=== PATIENT | female | born 1955 | race Caucasian/White ===

== ENCOUNTER 2019-02-08 09:57 | Emergency (ER) | payer MEDICARE, MEDICAID ==
[~2019-02-08] VITALS: Ht 154.9 cm; Wt 96.6 kg
[~2019-02-08 09:57] MED LIST: ASPI81TA18 PO; INSU100S22 SUBQ; LOSA25TA32 PO; METF1000 PO
[2019-02-08 10:11] VITALS: BP 165/65
--- NOTE | 2019-02-08 10:11 | NUR ---
Note undone in EDM - 02/08/19 at 1035 by [facility] PT ARRIVED TO ED C/O BAD PAIN/ VAIGNAL ITCHINESS X 4 DAYS. RATES PAIN 12/26 AND DESCRIBES IT PRESSURE AND ITCHING. NO VAGINAL DISCHAGRE NOTED. DENIES DYSURIA. PT STATES THE PAIN RADIATES TO HER ANUS. VSS. DENIES ANY TRUAMA OR INJURY. PATIENT POSITIONED FOR COMFORT; HOB ELEVATED; BEDRAILS UP X2; BED DOWN. ER MD MADE AWARE OF PT STATUS NKA. PMH: HTN, DM, ARTHIRIST.
--- NOTE | 2019-02-08 10:11 | NUR ---
PT ARRIVED TO ED C/O ABD PAIN/ VAGINAL ITCHINESS X 4 DAYS. RATES PAIN 9/10 AND DESCRIBES IT PRESSURE AND ITCHING. NO VAGINAL DISCHARGE NOTED. DENIES DYSURIA. PT STATES THE PAIN RADIATES TO HER ANUS. VSS. DENIES ANY TRUAMA OR INJURY. PATIENT POSITIONED FOR COMFORT; HOB ELEVATED; BEDRAILS UP X2; BED DOWN. ER MD MADE AWARE OF PT STATUS NKA. PMH: HTN, DM, ARTHIRIST.
[2019-02-08 12:20] VITALS: BP 165/65
--- NOTE | 2019-02-08 12:20 | NUR ---
Patient discharged with v/s stable. Written and verbal after care instructions given and explained. Patient alert, oriented and verbalized understanding of instructions. Ambulatory with steady gait. All questions addressed prior to discharge. ID band removed. Patient advised to follow up with PMD. Rx of OMENTROPAZOLE, MACROBID. given. Patient educated on indication of medication including possible reaction and side effects. Opportunity to ask questions provided and answered.
== END 2019-02-08 12:20 | disposition home or self-care (01) ==
LOC: MED 09:57
DX: N39.0 Urinary tract infection, site not specified (principal); B37.3 Candidiasis of vulva and vagina; E11.9 Type 2 diabetes mellitus without complications; M19.90 Unspecified osteoarthritis, unspecified site; I10 Essential (primary) hypertension; Z90.49 Acquired absence of other specified parts of digestive tract; Z90.710 Acquired absence of both cervix and uterus; Z98.890 Other specified postprocedural states; Z79.4 Long term (current) use of insulin; Z79.82 Long term (current) use of aspirin; Z79.899 Other long term (current) drug therapy
CPT/HCPCS: 81002; 99283

== ENCOUNTER 2019-02-17 05:23 | Emergency (ER) | payer MEDICARE, MEDICAID ==
[~2019-02-17] VITALS: Ht 154.9 cm; Wt 98.0 kg
[2019-02-17 05:30] VITALS: BP 182/90
--- NOTE | 2019-02-17 05:30 | NUR ---
63/F PRESENTED TO ED WITH C/O UTI. COMPLAINS OF PAINFUL URINATION. STATES SHE WAS SEEN HERE FOR UTI [id number] AGO AND PRESCRIBED MACROBID BUT UTI HAS NOT GONE AWAY. PAIN 10/10 SHARP SUPRAPUBIC RADIATING TO LOWER BACK. STATES SHE HAS FREQUENT UTI'S. VSS. PMH- DM, HTN, ARTHRITIS DENIES ALLERGIES.
--- NOTE | 2019-02-17 06:48 | NUR ---
BLOOD DRAWS COLLECTED
[2019-02-17 06:50] LABS: BILIRUBIN,URINE NEGATIVE (NEGATIVE); BLOOD, URINE NEGATIVE (NEGATIVE); COLOR,URINE YELLOW (YELLOW); LEUKOCYTE ESTERASE ,URINE NEGATIVE (NEGATIVE); NITRITE, URINE NEGATIVE (NEGATIVE); PH,URINE 7.5 (5.0-9.0); UGLUCOSE 3+ (NEGATIVE)
[2019-02-17 06:57] LABS: APPEARANCE,URINE SL HAZY (CLEAR)
[2019-02-17 06:59] LABS: RBC,URINE 0 /HPF (0-5); WBC,URINE 0-5 /HPF (0-5)
--- NOTE | 2019-02-17 07:20 | NUR ---
BEDSIDE REPORT GIVEN TO GINGER DONALDSON
[2019-02-17] MEDS ORDERED: NACL 0.9% 1,000 ML IV ONE (07:21)
--- NOTE | 2019-02-17 07:21 | NUR ---
RECEIVED PATIENT, AAOX4, C/O ABDOMINAL PAIN 01/25, VSS, NO S/S OF DISTRESS.
[2019-02-17 07:23] LABS: ANION GAP 12.6 (8-16); CARBON DIOXIDE 28.7 mmol/L (21-32); CREATININE 0.7 mg/dL (0.6-1.3); POTASSIUM 4.3 mmol/L (3.5-5.1)
[2019-02-17 07:24] LABS: BASOPHILS % (AUTO) 0.7 % (0.0-2.0); EOSINOPHILS # (AUTO) 0.2 K/uL (0-0.4); EOSINOPHILS % (AUTO) 3.4 % (0.0-4.0); HEMATOCRIT 35.1 % (36-48); HEMOGLOBIN 11.2 g/dL (12.0-16.0); LYMPHOCYTES # (AUTO) 1.5 K/uL (2.5-16.5); LYMPHOCYTES % (AUTO) 24.6 % (20.5-51.1); MEAN CORPUSCULAR HEMOGLOBIN 28 pg (27-31); MEAN CORPUSCULAR HGB CONC 32 g/dL (33-37); MEAN CORPUSCULAR VOLUME 88.9 fL (80-94); MONOCYTES # (AUTO) 0.5 K/uL (0.8-1.0); NEUTROPHILS # (AUTO) 3.8 K/uL (1.8-7.7); NEUTROPHILS % (AUTO) 63.3 % (42.2-75.2); PLATELET COUNT (AUTO) 236 K/uL (140-450); RED BLOOD CELL COUNT(AUTO) 3.95 MIL/uL (4.20-5.40); RED CELL DISTRIBUTION WIDTH 13.9 % (11.6-13.7)
[2019-02-17] MEDS ORDERED: KETOROLAC 30 MG/ML VIAL IVP ONE (07:25)
[2019-02-17] MEDS ORDERED: ONDANSETRON 4 MG/2 ML VIAL IVP ONE (07:25)
[2019-02-17] MEDS ORDERED: MORPHINE SULFATE 2 MG/ML SYR IVP ONE (07:25)
[2019-02-17 07:29] LABS: ALBUMIN 2.8 g/dL (3.4-5.0); TOTAL BILIRUBIN 0.2 mg/dL (0.0-1.0)
--- NOTE | 2019-02-17 07:35 | NUR ---
PT IS TAKEN TO CT
--- NOTE | 2019-02-17 07:58 | NUR ---
PT IS BACK FROM CT, IV MEDICATION GIVEN, VSS, STILL LOWER ABDOMINAL PAIN 01/25.
[2019-02-17 10:04] LABS: AMYLASE 51 U/L (25-115); LIPASE 200 U/L (73-393)
--- NOTE | 2019-02-17 10:39 | NUR ---
Patient discharged with v/s stable. Written and verbal after care instructions given and explained. Patient alert, oriented and verbalized understanding of instructions. Ambulatory with steady gait. All questions addressed prior to discharge. ID band removed. Patient advised to follow up with PMD. Rx of JAMES SHELDON given. Patient educated on indication of medication including possible reaction and side effects. Opportunity to ask questions provided and answered.
--- NOTE | 2019-02-17 10:39 | NUR ---
IV removed X 2, catheters intact and site benign. Applied folded 4x4 gauze and tape to stop bleeding bilaterally.
[2019-02-17 10:40] VITALS: BP 154/71
--- NOTE | 2019-02-19 13:48 | NUR ---
Late entry. Confirmed with RN that 0.9 NS 100ml/hr was completed at 1039.
== END 2019-02-17 10:39 | disposition home or self-care (01) ==
LOC: MED 05:23
DX: N39.0 Urinary tract infection, site not specified (principal); E66.9 Obesity, unspecified; E11.9 Type 2 diabetes mellitus without complications; I10 Essential (primary) hypertension; N76.0 Acute vaginitis; M19.90 Unspecified osteoarthritis, unspecified site; Z98.890 Other specified postprocedural states; Z79.4 Long term (current) use of insulin; Z79.82 Long term (current) use of aspirin; Z79.899 Other long term (current) drug therapy
CPT/HCPCS: 36415; 74176; 80053; 81001; 82150; 83690; 85025; 96374; 96375; 99284; J1885; J2270; J2405; J7030

== ENCOUNTER 2019-07-30 10:17 | Emergency (ER) | payer MEDICARE, MEDICAID ==
[~2019-07-30] VITALS: Ht 152.4 cm; Wt 122.5 kg
[2019-07-30 10:24] VITALS: BP 207/85
--- NOTE | 2019-07-30 10:30 | NUR ---
PT C/O UTI S/S X 1 WEEK. +DYSURIA, FREQUENCY, URGENCY. PT ALSO REPORTS LOWER BACK PAIN AND SUPRAPUBIC PAIN 5/10. +NAUSEA. PT DENIES VOMITING, AB PAIN, OR FEVER. PT PASHTO SPEAKING, DR MARC NOTES REVIEWED. PMH- ASTHMA, DM
--- NOTE | 2019-07-30 10:32 | NUR ---
pt amb to restroom with steady gait
--- NOTE | 2019-07-30 10:42 | NUR ---
urine collected, colored don, hazy
[2019-07-30 10:56] LABS: APPEARANCE,URINE HAZY (CLEAR); BILIRUBIN,URINE NEGATIVE (NEGATIVE); BLOOD, URINE NEGATIVE (NEGATIVE); COLOR,URINE ORANGE (YELLOW); LEUKOCYTE ESTERASE ,URINE TRACE (NEGATIVE); NITRITE, URINE POSITIVE (NEGATIVE); UGLUCOSE TRACE (NEGATIVE)
[2019-07-30 11:00] VITALS: BP 195/76
--- NOTE | 2019-07-30 11:00 | NUR ---
Patient discharged with v/s stable. Written and verbal after care instructions given and explained IN [place]ROMAN[place]. PT VERBALIZED UNDERSTANDING. Patient alert, oriented and verbalized understanding of instructions. Ambulatory with steady gait. All questions addressed prior to discharge. ID band removed. Patient advised to follow up with PMD. Rx of MACROBID given. Patient educated on indication of medication including possible reaction and side effects. Opportunity to ask questions provided and answered.
[2019-07-30 11:57] LABS: RBC,URINE 0-5 /HPF (0-5)
--- NOTE | 2019-08-01 20:43 | NUR ---
LATE ENTRY-- RECEIVED A POSTIVE URINE CULTURE. DR ROBLES AWARE AND REQUESTED PT TO RETURN IF SYMPTOMS WORSENING FOR IV ABX. ATTEMPT MADE TO CALL PATIENT, NUMBER PROVIDED IS NO LONGER IN SERVICE. NO OTHER NUMBERS PROVIDED. DR MITCHELL AWARE.
== END 2019-07-30 11:00 | disposition home or self-care (01) ==
LOC: MED 10:17
DX: N39.0 Urinary tract infection, site not specified (principal); E11.9 Type 2 diabetes mellitus without complications; I10 Essential (primary) hypertension; Z90.49 Acquired absence of other specified parts of digestive tract; Z98.890 Other specified postprocedural states; Z79.4 Long term (current) use of insulin; Z79.899 Other long term (current) drug therapy
CPT/HCPCS: 81001; 87086; 87186; 99283

== ENCOUNTER 2019-11-09 09:16 | Emergency (ER) | payer MEDICARE, MEDICAID ==
[~2019-11-09] VITALS: Ht 152.4 cm; Wt 99.0 kg
[2019-11-09 09:21] VITALS: BP 173/69
--- NOTE | 2019-11-09 09:27 | NUR ---
PT AMBULATED TO BED 5.
--- NOTE | 2019-11-09 09:30 | NUR ---
PT C/O NIC FLANK PAIN RADIATING TO LOWER ABDOMEN X 3 DAYS. PT STATES DYSURIA AND BURNING SENSATION OF URINATION. DENIES URGENCY OR FREQUENCY OF URINATIONG OR HEMATURIA. REGULAR BM, LAST BM YESTERDAY NIGHT. DENIES N/V/D. NIC CVAT POSITIVE AND LEFT SIDE IS TENDER THAN RIGHT SIDE. AAOX4 WITH EVEN AND STEADY GAIT; PATIENT STATES PAIN OF 9/10 AT THIS TIME; VSS; PATIENT POSITIONED FOR COMFORT; HOB ELEVATED; BEDRAILS UP X1; BED DOWN. ER MD MADE AWARE OF PT STATUS.
[2019-11-09 09:50] LABS: BASOPHILS # (AUTO) 0.2 K/uL (0.00-0.22); BASOPHILS % (AUTO) 1.5 % (0.0-2.0); EOSINOPHILS # (AUTO) 0.3 K/uL (0-0.4); EOSINOPHILS % (AUTO) 3.1 % (0.0-4.0); HEMATOCRIT 36.6 % (36-48); HEMOGLOBIN 11.8 g/dL (12.0-16.0); LYMPHOCYTES # (AUTO) 2.2 K/uL (2.5-16.5); LYMPHOCYTES % (AUTO) 20.7 % (20.5-51.1); MEAN CORPUSCULAR HEMOGLOBIN 29 pg (27-31); MEAN CORPUSCULAR HGB CONC 32 g/dL (33-37); MEAN CORPUSCULAR VOLUME 89.5 fL (80-94); MONOCYTES # (AUTO) 0.7 K/uL (0.8-1.0); MONOCYTES % (AUTO) 6.3 % (1.7-9.3); NEUTROPHILS # (AUTO) 7.1 K/uL (1.8-7.7); NEUTROPHILS % (AUTO) 68.4 % (42.2-75.2); PLATELET COUNT (AUTO) 208 K/uL (140-450); RED BLOOD CELL COUNT(AUTO) 4.09 MIL/uL (4.20-5.40); RED CELL DISTRIBUTION WIDTH 13.7 % (11.6-13.7); WHITE BLOOD COUNT (AUTO) 10.4 K/uL (4.8-10.8)
[2019-11-09 10:16] LABS: ALBUMIN 3.4 g/dL (3.4-5.0); ANION GAP 13.1 (8-16); CARBON DIOXIDE 27.8 mmol/L (21-32); CREATININE 0.8 mg/dL (0.6-1.3); POTASSIUM 4.9 mmol/L (3.5-5.1); TOTAL BILIRUBIN 0.3 mg/dL (0.0-1.0)
--- NOTE | 2019-11-09 10:20 | NUR ---
ERMD AT BEDSIDE.
--- NOTE | 2019-11-09 10:20 | NUR ---
Dr. Rodríguez is evaluating the patient at bedside.
[2019-11-09 10:38] VITALS: BP 145/48
[2019-11-09 11:15] LABS: APPEARANCE,URINE CLEAR (CLEAR); BILIRUBIN,URINE NEGATIVE (NEGATIVE); BLOOD, URINE NEGATIVE (NEGATIVE); COLOR,URINE YELLOW (YELLOW); LEUKOCYTE ESTERASE ,URINE 3+ (NEGATIVE); NITRITE, URINE NEGATIVE (NEGATIVE); PH,URINE 7.5 (5.0-9.0); UGLUCOSE 2+ (NEGATIVE)
[2019-11-09 11:37] LABS: RBC,URINE 0-5 /HPF (0-5)
[2019-11-09 11:38] LABS: WBC,URINE 60-80 /HPF (0-5)
== END 2019-11-09 10:38 | disposition home or self-care (01) ==
LOC: MED 09:16
DX: N12 Tubulo-interstitial nephritis, not specified as acute or chronic (principal); E11.9 Type 2 diabetes mellitus without complications; I10 Essential (primary) hypertension
CPT/HCPCS: 36415; 80053; 81001; 85025; 87086; 87186; 99284

== ENCOUNTER 2019-12-17 16:24 | Emergency (ER) | payer MEDICARE, MEDICAID ==
[~2019-12-17] VITALS: Ht 152.4 cm; Wt 95.3 kg
--- NOTE | 2019-12-17 16:37 | NUR ---
PT AMB TO ER BED 3
[2019-12-17 16:43] VITALS: BP 175/80
--- NOTE | 2019-12-17 16:50 | NUR ---
C/O PAINFUL URINATION FOR 7 DAYS SOUGHT CONSULT AT [facility]RGENT [facility] 2 DAYS AGO STILL WITH PAIN 11/25 , DENIES N/V. PMHXS NTH , DM , RA. MEDS INSULIN AND ORH.
--- NOTE | 2019-12-17 17:10 | NUR ---
roxie wong at bedside evaluating pt.
[2019-12-17 17:53] VITALS: BP 175/80
--- NOTE | 2019-12-17 17:54 | NUR ---
Patient discharged with v/s stable. Written and verbal after care instructions given and explained regarding UTI . Patient alert, oriented and verbalized understanding of instructions. Ambulatory with steady gait. All questions addressed prior to discharge. ID band removed. Patient advised to follow up with PMD. Rx of naprosyn ,cipro and phenazopyridine Hcl given. Patient educated on indication of medication including possible reaction and side effects. Opportunity to ask questions provided and answered.
== END 2019-12-17 17:54 | disposition home or self-care (01) ==
LOC: MED 16:24
DX: N39.0 Urinary tract infection, site not specified (principal); E11.9 Type 2 diabetes mellitus without complications; I10 Essential (primary) hypertension; Z90.49 Acquired absence of other specified parts of digestive tract; Z90.710 Acquired absence of both cervix and uterus; Z79.82 Long term (current) use of aspirin; Z79.4 Long term (current) use of insulin; Z79.899 Other long term (current) drug therapy
CPT/HCPCS: 81002; 99283

== ENCOUNTER 2020-04-02 10:01 | Emergency (ER) | payer MEDICARE, MEDICAID ==
[~2020-04-02] VITALS: Ht 152.4 cm; Wt 101.2 kg
--- NOTE | 2020-04-02 10:30 | NUR ---
PT TAKEN TO CHAIR A.
[2020-04-02] MEDS ORDERED: KETOROLAC 30 MG/ML VIAL IM STA (10:42)
[2020-04-02] MEDS ORDERED: cefTRIAXone 1,000 MG in LIDOCAINE MPF 1% 2.1 ML IM ONE (10:45)
[2020-04-02] MEDS ORDERED: LIDOCAINE MPF 1% 5 ML ONE (11:12)
[2020-04-02] MEDS ORDERED: cefTRIAXone 1,000 MG VIAL ONE (11:12)
[2020-04-02 11:21] VITALS: BP 183/100
--- NOTE | 2020-04-02 11:21 | NUR ---
Patient discharged with v/s stable. Written and verbal after care instructions given and explained. Patient alert, oriented and verbalized understanding of instructions. Ambulatory with steady gait. All questions addressed prior to discharge. ID band removed. Patient advised to follow up with PMD. Rx of Keflex 500mg given. Patient educated on indication of medication including possible reaction and side effects. Opportunity to ask questions provided and answered.
[2020-04-02 12:25] LABS: APPEARANCE,URINE CLOUDY (CLEAR); BILIRUBIN,URINE NEGATIVE (NEGATIVE); BLOOD, URINE NEGATIVE (NEGATIVE); COLOR,URINE YELLOW (YELLOW); LEUKOCYTE ESTERASE ,URINE NEGATIVE (NEGATIVE); NITRITE, URINE POSITIVE (NEGATIVE); PH,URINE 7.5 (5.0-9.0); UGLUCOSE 1+ (NEGATIVE)
[2020-04-02 13:07] LABS: RBC,URINE 0-5 /HPF (0-5); WBC,URINE 0-5 /HPF (0-5)
== END 2020-04-02 11:21 | disposition home or self-care (01) ==
LOC: MED 10:01
DX: N39.0 Urinary tract infection, site not specified (principal); N12 Tubulo-interstitial nephritis, not specified as acute or chronic; E11.9 Type 2 diabetes mellitus without complications
CPT/HCPCS: 81001; 81025; 87086; 96372; 99284; J0696; J1885; J2001

== ENCOUNTER 2021-06-14 09:01 | Emergency (ER) | payer OTHER, MEDICAID ==
[~2021-06-14] VITALS: Ht 149.9 cm; Wt 97.5 kg
[2021-06-14 09:08] VITALS: BP 211/95
--- NOTE | 2021-06-14 09:20 | NUR ---
66/F BIB SELF WITH C/O LOWER BACK PAIN RADIATING TO HER LOWER ABDOMEN X3 DAYS. REPORTS NAUSEA AND DYSURIA, DENIES V/D, FEVERS. PT STATES 10/10 PAIN. MEDHX: DM, HTN, ARTHRITIS ALLERGIES: NKA
--- NOTE | 2021-06-14 09:24 | NUR ---
DR SAGE AT BEDSIDE EXAMINING PT
--- NOTE | 2021-06-14 09:29 | NUR ---
LAB AT BEDSIDE
[2021-06-14] MEDS ORDERED: ONDANSETRON 4 MG/2 ML VIAL IVP ONE (09:35)
[2021-06-14] MEDS ORDERED: KETOROLAC 15 MG/ML VIAL IVP ONE (09:35)
[2021-06-14] MEDS ORDERED: LOSARTAN 25 MG TAB ONE (09:40)
[2021-06-14 09:41] LABS: BASOPHILS # (AUTO) 0.1 K/uL (0.00-0.22); BASOPHILS % (AUTO) 1.5 % (0.0-2.0); EOSINOPHILS # (AUTO) 0.2 K/uL (0-0.4); EOSINOPHILS % (AUTO) 3.2 % (0.0-4.0); HEMATOCRIT 36.1 % (36-48); HEMOGLOBIN 11.8 g/dL (12.0-16.0); LYMPHOCYTES # (AUTO) 1.8 K/uL (2.5-16.5); MEAN CORPUSCULAR HEMOGLOBIN 28 pg (27-31); MEAN CORPUSCULAR HGB CONC 33 g/dL (33-37); MONOCYTES # (AUTO) 0.4 K/uL (0.8-1.0); MONOCYTES % (AUTO) 6.1 % (1.7-9.3); NEUTROPHILS # (AUTO) 4.6 K/uL (1.8-7.7); NEUTROPHILS % (AUTO) 64.2 % (42.2-75.2); PLATELET COUNT (AUTO) 270 K/uL (140-450); RED BLOOD CELL COUNT(AUTO) 4.29 MIL/uL (4.20-5.40); RED CELL DISTRIBUTION WIDTH 14.1 % (11.6-13.7); WHITE BLOOD COUNT (AUTO) 7.1 K/uL (4.8-10.8)
[2021-06-14] MEDS ORDERED: LOSARTAN 25 MG TAB PO SCH (09:45)
[2021-06-14 09:55] LABS: ALBUMIN 3.3 g/dL (3.4-5.0); ANION GAP 11.2 (8-16); CARBON DIOXIDE 29.7 mmol/L (21-32); CREATININE 0.7 mg/dL (0.6-1.3); POTASSIUM 4.9 mmol/L (3.5-5.1); TOTAL BILIRUBIN 0.4 mg/dL (0.0-1.0)
--- NOTE | 2021-06-14 11:20 | NUR ---
PT RESTING IN BED, COMFORT MEASURES MET.
[2021-06-14 11:59] LABS: BILIRUBIN,URINE NEGATIVE (NEGATIVE); BLOOD, URINE NEGATIVE (NEGATIVE); COLOR,URINE YELLOW (YELLOW); LEUKOCYTE ESTERASE ,URINE NEGATIVE (NEGATIVE); NITRITE, URINE POSITIVE (NEGATIVE); PH,URINE 7.5 (5.0-9.0); UGLUCOSE 3+ (NEGATIVE)
[2021-06-14 12:07] LABS: APPEARANCE,URINE SLIGHTLY HAZY (CLEAR)
[2021-06-14 12:08] LABS: RBC,URINE 0-5 /HPF (0-5); WBC,URINE 0-5 /HPF (0-5)
[2021-06-14] MEDS ORDERED: CIPR500T9 PO (13:33)
[2021-06-14 13:40] VITALS: BP 143/39
--- NOTE | 2021-06-14 13:40 | NUR ---
Patient discharged with v/s stable. Written and verbal after care instructions given and explained. Patient alert, oriented and verbalized understanding of instructions. Ambulatory with steady gait. All questions addressed prior to discharge. ID band removed. Patient advised to follow up with PMD. Rx of CIPROFLOXACIN given. Patient educated on indication of medication including possible reaction and side effects. Opportunity to ask questions provided and answered.
[2021-06-15] MEDS ORDERED: LOSARTAN 25 MG TAB PO SCH (09:00)
== END 2021-06-14 13:40 | disposition home or self-care (01) ==
LOC: MED 09:01
DX: N12 Tubulo-interstitial nephritis, not specified as acute or chronic (principal); Z90.49 Acquired absence of other specified parts of digestive tract; Z98.890 Other specified postprocedural states; Z90.710 Acquired absence of both cervix and uterus
CPT/HCPCS: 36415; 80053; 81001; 83690; 84484; 85025; 87086; 93005; 96374; 96375; 99284; J1885; J2405

== ENCOUNTER 2023-01-25 14:27 | Emergency (ER) | payer OTHER, MEDICAID ==
[~2023-01-25] VITALS: Ht 152.4 cm; Wt 90.7 kg
[~2023-01-25 14:27] MED LIST changes: +CIPR500T9 PO; +METF-1274 PO; -METF1000 PO
[2023-01-25 15:03] VITALS: BP 157/69; PULSE 70; RESP 20; TEMP 98; O2SAT 98
[2023-01-25] MEDS ORDERED: HYDROcodone/APAP 5/325 MG 1 TAB TAB PO ONE (16:15)
[2023-01-25] MEDS ORDERED: IBUP-2213 PO (17:24)
[2023-01-25] MEDS ORDERED: LID5T TP (17:24)
[2023-01-25] MEDS ORDERED: ACET-8905 PO (17:24)
[2023-01-25 17:38] VITALS: BP 157/69; PULSE 70; RESP 20; TEMP 98; O2SAT 98
== END 2023-01-25 17:39 | disposition home or self-care (01) ==
LOC: MED 14:27
DX: S46.811A Strain of other muscles, fascia and tendons at shoulder and upper arm level, right arm, initial encounter (principal); E11.9 Type 2 diabetes mellitus without complications; I10 Essential (primary) hypertension; Z79.4 Long term (current) use of insulin; Z79.899 Other long term (current) drug therapy; X58.XXXA Exposure to other specified factors, initial encounter; Y93.89 Activity, other specified; Y92.89 Other specified places as the place of occurrence of the external cause; Y99.8 Other external cause status
CPT/HCPCS: 73030; 99283

== ENCOUNTER 2023-12-09 09:33 | Emergency (ER) | payer OTHER, MEDICAID ==
[~2023-12-09] VITALS: Ht 152.4 cm; Wt 93.9 kg
[~2023-12-09 09:33] MED LIST changes: +ACET500T99 PO; +AMLO10TA PO; -CIPR500T9 PO; +ERTA1VIA2 IV; +LID5T TP; +OMEP-303 PO
[2023-12-09 10:02] VITALS: BP 163/50; PULSE 71; RESP 15; TEMP 97.8; O2SAT 99
== END 2023-12-09 10:56 | disposition home or self-care (01) ==
LOC: MED 09:33
DX: Z45.2 Encounter for adjustment and management of vascular access device (principal); E11.9 Type 2 diabetes mellitus without complications; I10 Essential (primary) hypertension; Z79.899 Other long term (current) drug therapy; Z79.82 Long term (current) use of aspirin; Z79.4 Long term (current) use of insulin
CPT/HCPCS: 99281